=== PATIENT | female | born 1960 | race Caucasian/White ===

== ENCOUNTER 2016-08-21 07:39 | Emergency (ER) | payer OTHER ==
[2016-08-21 08:00] VITALS: BP 104/63; PULSE 96; TEMP 98.4; BMI 27.3
[2016-08-21] MEDS ORDERED: ALBUTEROL SO4 2.5/IPRATROPIUM 0.5 INH SOL 3 ML VIAL.NEB. NEB ONE ×2 (09:14→09:18)
--- NOTE | 2016-08-21 09:29 | PDOC ---
History of Present Illness - General Chief Complaint: Cold Symptoms Stated Complaint: COUGH,FEVER Time Seen by Provider: 08/21/16 07:59 History Source: Patient Exam Limitations: No Limitations - History of Present Illness Initial Comments: 08/21/16 09:24 Patient is a 55-year-old female, no significant medical history currently on no medication presents for evaluation of sinus pressure pain, headache, productive cough. Has had symptoms for 1 week, progressively worsening. Febrile last night tactile only. Denies any nausea vomiting, no abdominal pain, no back pain or chest pain. Past Medical History: Denies. Allergies: No known allergies Medications: None Family History: Non-contributory Social History: Denies smoking, alcohol use, or IVDU Review of Systems GENERAL/CONSTITUTIONAL: No fever or chills. No weakness. No weight change. HEAD, EYES, EARS, NOSE AND THROAT: No change in vision. No ear pain or discharge. No sore throat. Sinus pressure and pain CARDIOVASCULAR: No chest pain or shortness of breath. RESPIRATORY: Productive cough, no wheezing, or hemoptysis. GASTROINTESTINAL: No nausea, vomiting, diarrhea or constipation. No rectal bleeding. GENITOURINARY: No dysuria, frequency, or change in urination. MUSCULOSKELETAL: No joint or muscle swelling or pain. No neck or back pain. SKIN : No rash or easy bruising. NEUROLOGIC: No headache, vertigo, loss of consciousness, or loss of sensation. PSYCHIATRIC: No depression or anxiety. ENDOCRINE: No increased thirst. No abnormal weight change. HEMATOLOGIC/LYMPHATIC: No anemia, easy bleeding, or history of blood clots. ALLERGIC/IMMUNOLOGIC: No hives or skin allergy. No latex allergy. Physical Exam: GENERAL: The patient is awake, alert, and fully oriented, in no acute distress. HEAD: Normal with no signs of trauma. EYES: Pupils equal, round and reactive to light, extraocular movements intact, sclera anicteric, conjunctiva clear. ENT: Ears normal, nares are inflamed, worse on left and right, oropharynx clear without exudates. Moist mucous membranes. No uvula deviation, frontal sinus pressure and pain NECK: Normal range of motion, supple without lymphadenopathy, JVD, or masses. LUNGS: Breath sounds equal, rhonchi cleared with cough, No wheezes, and no crackles. HEART: Regular rate and rhythm, normal S1 and S2 without murmur, rub or gallop. ABDOMEN: Soft, nontender, normoactive bowel sounds. No guarding, no rebound. No masses. No bruising or abrasions RECTAL : Guaiac negative, normal rectal tone. MUSCULOSKELETAL: Normal range of motion, no edema. No clubbing or cyanosis. No cords, erythema, or tenderness. No CVA Tenderness with fist palpation. NEUROLOGICAL: Cranial nerves II through XII grossly intact. Normal speech, normal gait. SKIN: Warm, Dry, normal turgor, no rashes or lesions noted. Past History - Past Medical History Allergies/Adverse Reactions: Allergies Allergy/AdvReac Type Severity Reaction Status Date / Time Penicillins Allergy Intermediate Verified 08/21/16 07:54 Home Medications: Ambulatory Orders Clarithromycin [Biaxin] 500 mg PO BID #20 tablet 08/21/16 Mometasone Furoate 17 gm NS BID #1 spray.pump 08/21/16 Thyroid Disease: No Other medical history: none - Surgical History Abdominal Surgery: Yes (TUMMY TUCK) - Immunization History Immunization Up to Date: Yes - Psycho/Social/Smoking Cessation Hx Anxiety: No Suicidal Ideation: No Smoking Status: No Smoking History: Never smoked Have you smoked in the past 12 months: No Number of Cigarettes Smoked Daily: 0 Information on smoking cessation initiated: No Hx Alcohol Use: No Drug/Substance Use Hx: No Substance Use Type: None *Physical Exam - Vital Signs Last Vital Signs Temp Pulse Resp BP Pulse Ox 98.4 F 96 H 18 104/63 100 08/21/16 07:55 08/21/16 07:55 08/21/16 07:55 08/21/16 07:55 08/21/16 07:55 ED Treatment Course - Medications Given in the ED: ED Medications Discontinued Medications Generic Name Dose Route Start Last Admin Trade Name Freq PRN Reason Stop Dose Admin Albuterol/Ipratropium 1 amp 08/21/16 09:14 08/21/16 09:20 Duoneb - NEB 08/21/16 09:15 1 amp ONCE ONE Administration Medical Decision Making - Medical Decision Making 08/21/16 09:25 A/P: Patient with clinical signs of bronchitis, sinusitis will DC patient on clarithromycin patient has had reaction to penicillin in the past. Also was given antibiotic last visit to emergency Department states she took azithromycin but it did not work. Also remembers having a reaction to medication unsure if it was the azithromycin although reviewing the chart old charts states reaction to Tamiflu. Combivent given prior to discharge, patient already on Flonase states doesn't work will start on Nasonex. I discussed the physical exam findings, ancillary test results and final diagnoses with the patient. I answered all of the patient's questions. The patient was satisfied with the care received and felt comfortable with the discharge plan and treatment plan. The patient will call to arrange follow-up and will return to the Emergency Department with any new, persistent or worsening symptoms. *DC/Admit/Observation/Transfer Diagnosis at time of Disposition: Bronchitis Sinusitis Qualifiers: Sinusitis location: frontal Chronicity: acute Recurrence: recurrent Qualified Code(s): J01.11 - Acute recurrent frontal sinusitis - Discharge Dispostion Disposition: HOME Condition at time of disposition: Good Admit: No - Prescriptions Prescriptions: Clarithromycin [Biaxin] 500 mg PO BID #20 tablet Mometasone Furoate 17 gm NS BID #1 spray.pump - Referrals Referrals: Lauren Ramirez MD [Primary Care Provider] - - Patient Instructions Printed Discharge Instructions: DI for Acute Bronchitis Additional Instructions: Keep head of bed elevated 45 when sleeping Cool air humidifier at night while sleeping Inhale steam from warm shower Motrin for pain Followup in the primary care doctor's office in 2 days for evaluation. If any respiratory distress, increased cough, inability to drink, increased wheezing please return immediately to emergency department.
== END 2016-08-21 09:48 | disposition home or self-care (01) ==
LOC: JERFT 07:39 → JER 07:39 → JERFT 09:48
PROC: 3E0F7GC Introduction of Other Therapeutic Substance into Respiratory Tract, Via Natural or Artificial Opening (ICD-10-PCS; principal; 2016-08-21)
DX: J01.11 Acute recurrent frontal sinusitis (principal)
CPT/HCPCS: 99281-25

== ENCOUNTER 2017-06-13 09:23 | Emergency (ER) | payer OTHER ==
--- NOTE | 2017-06-13 09:31 | PDOC ---
History of Present Illness - General Stated Complaint: CHEST PAIN Time Seen by Provider: 06/13/17 09:31 - History of Present Illness Initial Comments: 56 year old female with remote history of anxiety and depression (not currently medicated) presenting with chest pain that has gradually worsened since yesterday evening after an extreme bout of laughing. States That she had a little bit of right sided chest pain during the laughing bout that slightly resolved afte she went to bed. When she woke up she was also fine. The pain came on again while she was working and co-presented with lightheadedness. She drank some water with improvement of her symptoms but they were still lingering so she came to the ED. Of note, she has had some URI like symptoms in the setting of suspected sinusitis (currently on ) 06/13/17 12:46 Past History - Past Medical History Allergies/Adverse Reactions: Allergies Allergy/AdvReac Type Severity Reaction Status Date / Time Penicillins Allergy Intermediate Verified 06/13/17 09:31 Home Medications: Ambulatory Orders Doxycycline Hyclate 100 mg PO BID #20 tablet 06/08/17 Prednisone 10 mg PO DAILY 06/08/17 levoFLOXacin 750 mg PO DAILY 06/08/17 Albuterol Sulfate Inhaler - [Ventolin HFA Inhaler -] 1 - 2 inh PO QID #1 inhaler 06/13/17 COPD: No Thyroid Disease: No - Surgical History Abdominal Surgery: Yes (REYNALDO JOHNSTON) - Immunization History Immunization Up to Date: Yes - Suicide/Smoking/Psychosocial Hx Smoking Status: No Smoking History: Never smoked Have you smoked in the past 12 months: No Number of Cigarettes Smoked Daily: 0 Hx Alcohol Use: No Drug/Substance Use Hx: No Substance Use Type: None Review of Systems - Review of Systems Constitutional: Yes: Chills, Fever HEENTM: No: Blurred Vision, Recent change in vision Respiratory: Yes: Cough. No: Shortness of Breath, Wheezing Cardiac (ROS): Yes: Chest Pain, Chest Tightness. No: Irregular Heart Rate ABD/GI: Yes: Nausea. No: Diarrhea, Vomiting : No: Burning, Dysuria, Discharge Musculoskeletal: No: Back Pain Integumentary: No: Bruising, Erythema Neurological: No: Headache, Paresthesia Psychiatric: Yes: Anxiety, Depression *Physical Exam - Physical Exam General Appearance: Yes: Nourished, Appropriately Dressed. No: Apparent Distress HEENT: positive: EOMI, ALEJANDRO, Normal ENT Inspection, Normal Voice Neck: positive: Trachea midline, Normal Thyroid, Supple. negative: Tender, Rigid Respiratory/Chest: positive: Lungs Clear, Normal Breath Sounds. negative: Chest Tender, Respiratory Distress, Accessory Muscle Use Cardiovascular: positive: Regular Rhythm, Regular Rate Gastrointestinal/Abdominal: positive: Normal Bowel Sounds, Flat, Soft. negative : Tender Musculoskeletal: positive: Normal Inspection. negative: Decreased Range of Motion Extremity: positive: Normal Capillary Refill, Normal Inspection, Normal Range of Motion. 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 Pain improved in the ED with toradol, tylenol, and nebs. Labs, UA, EKG, and CXR were WNL so patient will be discharged with albuterol inhaler and instructions to continue abx. 06/13/17 14:06 *DC/Admit/Observation/Transfer Diagnosis at time of Disposition: Chest pain Qualifiers: Chest pain type: unspecified Qualified Code(s): R07.9 - Chest pain, unspecified - Discharge Dispostion Disposition: HOME Condition at time of disposition: Improved Admit: No - Prescriptions Prescriptions: Albuterol Sulfate Inhaler - [Ventolin HFA Inhaler -] 1 - 2 inh PO QID #1 inhaler - Referrals Referrals: Lauren Ramirez MD [Primary Care Provider] - - Patient Instructions Printed Discharge Instructions: DI for Atypical Chest Pain, DI for Chest Pain Additional Instructions: Your chest pain is likely related to a muscle strain. Please use Tylenol as needed for the pain. Please follow up with Dr. Aguilar as needed. Please use the inhaler up to 4 times per day as needed for the shortness of breath. Please return to the ED for any new or worsening symptoms. - Post Discharge Activity Forms/Work/School Notes: Back to Work
[2017-06-13 09:36] VITALS: BMI 25.6
[2017-06-13] MEDS ORDERED: ACETAMINOPHEN 1000 MG/100 ML VIAL (NON FORMULARY) IVPB ONE (09:58)
[2017-06-13] MEDS ORDERED: SODIUM CHLORIDE 0.9% 500 ML INFUS.BAG IV ONE (09:59)
[2017-06-13] MEDS ORDERED: ACETAMINOPHEN INJECTION 100 ML IVPB ONE (10:01)
[2017-06-13 10:59] LABS: HEMATOCRIT 39.5 % (32.4-45.2); HEMOGLOBIN 12.9 GM/dL (10.7-15.3); MCH 25.3 pg (25.7-33.7); MCHC 32.8 g/dl (32.0-36.0); MEAN CELL VOLUME 77.1 fl (80-96); MEAN PLT VOLUME 9.9 fl (7.5-11.1); PLATELET COUNT 166 K/MM3 (134-434); RBC 5.12 M/mm3 (3.60-5.2); RDW 14.9 % (11.6-15.6); WHITE BLOOD COUNT 6.1 K/mm3 (4.0-10.0)
[2017-06-13 11:24] LABS: ALBUMIN 3.5 g/dl (3.4-5.0); ANION GAP 11 (8-16); BLOOD UREA NITROGEN 22 mg/dL (7-18); CALCIUM 9.5 mg/dL (8.5-10.1); CHLORIDE 106 mmol/L (98-107); CO2 27 mmol/L (21-32); CREATININE 0.7 mg/dL (0.55-1.02); GLUCOSE,RANDOM 80 mg/dL (74-106); POTASSIUM 4.1 mmol/L (3.5-5.1); SGOT/AST 35 U/L (15-37); SODIUM 144 mmol/L (136-145)
[2017-06-13 11:28] LABS: ALK PHOS 118 U/L (45-117); BILIRUBIN,TOTAL 0.4 mg/dL (0.2-1.0); SGPT/ALT 92 U/L (12-78); TOT PROT 7.5 g/dl (6.4-8.2)
--- NOTE | 2017-06-13 11:54 | EKG ---
Test Reason : Blood Pressure : / mmHG Vent. Rate : 073 BPM Atrial Rate : 073 BPM P-R Int : 154 ms QRS Dur : 094 ms QT Int : 416 ms P-R-T Axes : 042 -08 025 degrees QTc Int : 458 ms NORMAL SINUS RHYTHM WITH SINUS ARRHYTHMIA NORMAL ECG WHEN COMPARED WITH ECG OF 08-JUN-2017 18:08, NO SIGNIFICANT CHANGE WAS FOUND Confirmed by SERENITY GOLDBERG MD ([id number]) on 06/13/2017 11:54:04 AM Referred By: Confirmed By:SERENITY GOLDBERG MD
[2017-06-13] MEDS ORDERED: ALBUTEROL SO4 2.5/IPRATROPIUM 0.5 INH SOL 3 ML VIAL.NEB. NEB ONE ×2 (12:08→12:17)
[2017-06-13 12:41] LABS: URINE APPEARANCE CLEAR; URINE BILIRUBIN NEGATIVE (NEGATIVE); URINE BLOOD NEGATIVE (NEGATIVE); URINE COLOR COLORLESS; URINE GLUCOSE (UA) NEGATIVE (NEGATIVE); URINE KETONE NEGATIVE (NEGATIVE); URINE LEUK ESTERASE NEGATIVE (NEGATIVE); URINE NITRITE NEGATIVE (NEGATIVE); URINE PROTEIN NEGATIVE (NEGATIVE); URINE UROBILINOGEN NEGATIVE mg/dL (0.2-1.0)
[2017-06-13] MEDS ORDERED: KETOROLAC TROMETHAMINE 15 MG/ML VIAL IVPUSH ONE (12:41)
[2017-06-13] MEDS ORDERED: KETOROLAC TROMETHAMINE 15 MG/ML VIAL ONE (12:48)
[2017-06-13] MEDS ORDERED: KETOROLAC TROMETHAMINE 30 MG/1 ML VIAL ONE (12:55)
[2017-06-13] MEDS ORDERED: KETOROLAC TROMETHAMINE 30 MG/1 ML VIAL IM ONE (12:55)
[2017-06-13 15:16] VITALS: BP 123/77; PULSE 64; TEMP 98.2
--- NOTE | 2017-06-13 16:57 | PDOC ---
Attending Attestation - HPI HPI: 06/13/17 17:00 The patient is a 56 year old female with hx sinusitis presents to the ED complaining of chest pain since last evening. The patient describes her chest pain as right sided, squeezing, exertional, pleuritic, ranked 4-8/10 depending on positional changes. Reports pain began after laughing last night. Today, she was at work when her pain became worse when she twisted her body. Reports pain was worse when she pushes on it, but reports that she does not currently have pain. She reports to 1 week of feeling generally weak, and was diagnosed with sinusitis and treated with azithromycin, doxycycline, and steroids. She denies current headache. No shortness of breath. No fever or chills. No nausea, vomiting, or diaphoresis. No recent travel or long periods of immobilization. Denies focal weakness or numbness. - Physicial Exam PE: 06/13/17 17:00 GENERAL: Awake, alert, and fully oriented, in no acute distress HEAD: No signs of trauma EYES: PERRLA, EOMI, sclera anicteric, conjunctiva clear ENT: Auricles normal inspection, hearing grossly normal, nares patent, oropharynx clear without exudates. Moist mucosa NECK: Normal ROM, supple, no lymphadenopathy, JVD, or masses LUNGS: Breath sounds equal, clear to auscultation bilaterally. No wheezes, and no crackles HEART: Regular rate and rhythm, normal S1 and S2, no murmurs, rubs or gallops ABDOMEN: Soft, nontender, normoactive bowel sounds. No guarding, no rebound. No masses EXTREMITIES: Normal range of motion, no edema. No clubbing or cyanosis. No cords, erythema, or tenderness BACK: No midline spinal tenderness in cervical/thoracic/lumbar region NEUROLOGICAL: Normal speech, cranial nerves intact, negative pronator drift, 5/ 5 strength in all 4 extremities, normal sensation to light touch in all 4 extremities, normal cerebellar exam, normal gait, normal reflexes and tone SKIN: Warm, Dry, normal turgor, no rashes or lesions noted. Documentation prepared by Eun Link, acting as medical examiner for Roxanna Duffy MD. <Eun Link - Last Filed: 06/13/17 17:00> - Resident Resident Name: Bertrand Esqueda - ED Attending Attestation I have performed the following: I have examined & evaluated the patient, The case was reviewed & discussed with the resident, I agree w/resident's findings & plan, Exceptions are as noted - Medical Decision Making 06/13/17 17:32 56-year-old female presents emergency Department with resolved reproducible chest pain, non-productive cough and generalized weakness. Cough improved with pt's daughter's albuterol. Bloodwork including troponin within normal limits. Urinalysis negative for infection. Chest x-ray with no acute pathology. Likely musculoskeletal pain as pain is reproducible, worse with twisting, coughing and EKG is nonischemic. Unlikely ACS as patient has no risk factors and pain is reproducible. Unlikely pulmonary embolism as patient has not shortness of breath no PE risk factors (no recent immobility, no hormones, no history of DVT) , and vitals are within normal limits. Patient was chest pain-free during entire 5 hour ED stay. Given cough and recent URI, improvement with albuterol, clear lungs and normal CXR, likely bronchitis. Pt is s/p tamiithilir, and currently on doxy for sinusitis, also on steroids which I encouraged her to complete. WIll prescribe an albuterol pump for symptomatic relief. Advised pt to f/u with PMD within 2-3 days. Pt requests DC home. I discussed the physical exam findings, ancillary test results and final diagnoses with the patient. I answered all of the patient's questions. The patient was satisfied with the care received and felt comfortable with the discharge plan and treatment plan. The patient will call their primary care physician within 24 hours to arrange follow-up and will return to the Emergency Department with any new, persistent or worsening symptoms. <Roxanna Duffy - Last Filed: 06/13/17 17:45> Heart Score/ECG Review - [place] Comment: 06/13/17 17:30 Twelve-lead EKG was performed and reviewed by me. Normal sinus rhythm, rate 73. Normal axis, no ST elevations. <Roxanna Duffy - Last Filed: 06/13/17 17:45>
== END 2017-06-13 14:45 | disposition home or self-care (01) ==
LOC: JER 09:23
PROC: 3E0F7GC Introduction of Other Therapeutic Substance into Respiratory Tract, Via Natural or Artificial Opening (ICD-10-PCS; principal; 2017-06-13)
PROC: 3E033NZ Introduction of Analgesics, Hypnotics, Sedatives into Peripheral Vein, Percutaneous Approach (ICD-10-PCS; 2017-06-13)
PROC: 3E0F7GC Introduction of Other Therapeutic Substance into Respiratory Tract, Via Natural or Artificial Opening (ICD-10-PCS; 2017-06-13)
PROC: 3E0233Z Introduction of Anti-inflammatory into Muscle, Percutaneous Approach (ICD-10-PCS; 2017-06-13)
PROC: 3E0337Z Introduction of Electrolytic and Water Balance Substance into Peripheral Vein, Percutaneous Approach (ICD-10-PCS; 2017-06-13)
DX: R07.9 Chest pain, unspecified (principal)
CPT/HCPCS: 36415; 71046-TC-FY; 80053; 81003; 82550; 84484; 85027; 93005; 93010; 99284-25; J0131

== ENCOUNTER 2019-03-07 14:13 | Emergency (ER) | payer OTHER ==
[2019-03-07 14:37] VITALS: BMI 28.3
[2019-03-07] MEDS ORDERED: METHOCARBAMOL 500 MG TABLET PO ONE (14:47)
[2019-03-07] MEDS ORDERED: KETOROLAC TROMETHAMINE 30 MG/1 ML VIAL IM ONE (14:47)
[2019-03-07] MEDS ORDERED: METHOCARBAMOL 500 MG TABLET ONE (14:53)
[2019-03-07] MEDS ORDERED: KETOROLAC TROMETHAMINE 30 MG/1 ML VIAL ONE (14:53)
--- NOTE | 2019-03-07 15:02 | PDOC ---
History of Present Illness - General History Source: Patient Exam Limitations: Clinical Condition - History of Present Illness Initial Comments: 03/07/19 15:07 Patient with PMhx of hypotension on midodrine and chronic back pains present with complains of worsening lower back pains and spasm after carrying heavy boxes during moving. Patient report she use to take motrin for her back pains which helps but she ran out of her motrin. Denies numbness ot tingling sensation. Denies urinary symptoms of dysuria or urgency or hematuria. Patient last took aleve yesterday for pain . Patient report she did not take her midodrine hypotension medication today. Denies any other symptoms Occurred: reports: other (3 days) Severity: reports: moderate Pain Location: reports: back Method of Injury: Yes: other (heavy lifting) <Tavo House - Last Filed: 03/07/19 15:58> <Moses Herrera - Last Filed: 03/07/19 17:42> - General Chief Complaint: Back Pain Stated Complaint: LOWER BACK PAIN Time Seen by Provider: 03/07/19 14:42 Past History - Past Medical History COPD: No Thyroid Disease: No - Surgical History Abdominal Surgery: Yes (TUMMY TUCK) - Immunization History Immunization Up to Date: Yes - Psycho Social/Smoking Cessation Hx Smoking Status: No Smoking History: Never smoked Have you smoked in the past 12 months: No Number of Cigarettes Smoked Daily: 0 Hx Alcohol Use: No Drug/Substance Use Hx: No Substance Use Type: None <Tavo House - Last Filed: 03/07/19 15:58> <Moses Herrera - Last Filed: 03/07/19 17:42> - Past Medical History Allergies/Adverse Reactions: Allergies Allergy/AdvReac Type Severity Reaction Status Date / Time Penicillins Allergy Intermediate Verified 06/13/17 09:31 Home Medications: Ambulatory Orders Doxycycline Hyclate 100 mg PO BID #20 tablet 06/08/17 Prednisone 10 mg PO DAILY 06/08/17 levoFLOXacin 750 mg PO DAILY 06/08/17 Albuterol Sulfate Inhaler - [Ventolin HFA Inhaler -] 1 - 2 inh PO QID #1 inhaler 06/13/17 Ibuprofen 800 mg PO Q8H PRN #20 tablet 03/07/19 Methocarbamol [Robaxin -] 500 mg PO TID 4 Days #21 tablet 03/07/19 Methylprednisolone [Medrol Dose [place]] 4 mg PO ASDIR #21 tablet 03/07/19 Trauma Specific PMHX - Complaint Specific PMHX Back Injury: No Neck Injury: No <Tavo House - Last Filed: 03/07/19 15:58> Review of Systems - Review of Systems Able to Perform ROS?: Yes Is the patient limited Cambodian proficient: No Constitutional: No: Malaise, Weakness HEENTM: No: Symptoms Reported, See HPI, Eye Pain, Blurred Vision, Tearing, Recent change in vision, Double Vision, Cataracts, Ear Pain, Ocular Prothesis, Ear Discharge, Nose Pain, Nose Congestion, Tinnitus, Nose Bleeding, Hearing Loss , Throat Pain, Throat Swelling, Mouth Pain, Dental Problems, Difficulty Swallowing, Mouth Swelling, Other Respiratory: No: Symptoms reported, See HPI, Cough, Orthopnea, Shortness of Breath, SOB with Exertion, SOB at Rest, Stridor, Wheezing, Productive cough, Hemoptysis, Other Cardiac (ROS): No: Symptoms Reported, See HPI, Chest Pain, Edema, Irregular Heart Rate, Lightheadedness, Palpitations, Syncope, Chest Tightness, Other ABD/GI: No: Symptoms Reported, See HPI, Nausea, Vomiting, Abdominal cramping : No: Symptoms Reported, Burning, Dysuria, Frequency, Hematuria, Urgency Musculoskeletal: Yes: Symptoms Reported, See HPI, Back Pain (lower back pain), Muscle Pain (b/l lower back pain) Integumentary: No: Symptoms Reported Neurological: No: Symptoms reported, Numbness, Paresthesia, Tingling, Weakness All Other Systems: Reviewed and Negative <Tavo House - Last Filed: 03/07/19 15:58> *Physical Exam - Vital Signs Last Vital Signs Temp Pulse Resp BP Pulse Ox 98.2 F 80 17 99/58 L 97 03/07/19 14:34 03/07/19 14:34 03/07/19 14:34 03/07/19 14:34 03/07/19 14:34 - Physical Exam 03/07/19 15:01 GENERAL: Well developed, well nourished. Awake and alert in moderate acute distress. CARDIOVASCULAR: Regular rate and rhythm. No murmurs, rubs, or gallops. PULMONARY: No evidence of respiratory distress. Lungs clear to auscultation bilaterally. No wheezing, rales or rhonchi. ABDOMINAL: Soft. Non-tender. Non-distended. No rebound or guarding. No organomegaly. Normoactive bowel sounds MUSCULOSKELETAL : moderate tenderness over posterior paravertebral muscle of lumbosacal spine of L4-S2 on bilateral sides. No bony deformities. Radiculopathy SKIN: Warm and dry. Normal capillary refill. No rashes. No jaundice. NEUROLOGICAL: Alert, awake, appropriate. No motor deficits in the lower extremities. Gait is normal without ataxia. PSYCHIATRIC: Cooperative. Good eye contact. Appropriate mood and affect. General Appearance: Yes: Nourished, Appropriately Dressed, Apparent Distress, Moderate Distress <Tavo House - Last Filed: 03/07/19 15:58> - Vital Signs Last Vital Signs Temp Pulse Resp BP Pulse Ox 98.0 F 87 19 100/65 99 03/07/19 16:00 03/07/19 16:00 03/07/19 16:00 03/07/19 16:00 03/07/19 16:00 <Moses Herrera - Last Filed: 03/07/19 17:42> ED Treatment Course - RADIOLOGY Radiology Studies Ordered: Category Date Time Status SPINE-LUMBAR SACRAL [RAD] Stat Radiology 03/07/19 14:48 Ordered <Tavo House - Last Filed: 03/07/19 15:58> - Medications Given in the ED: ED Medications Discontinued Medications Generic Name Dose Route Start Last Admin Trade Name Freq PRN Reason Stop Dose Admin Ketorolac Tromethamine 30 mg 03/07/19 14:47 03/07/19 15:08 Toradol Injection - IM 03/07/19 14:48 30 mg ONCE ONE Administration Methocarbamol 500 mg 03/07/19 14:47 03/07/19 15:08 Robaxin - PO 03/07/19 14:48 500 mg ONCE ONE Administration <Moses Herrera - Last Filed: 03/07/19 17:42> Medical Decision Making - Medical Decision Making 03/07/19 15:11 Patient with PMhx of hypotension on midodrine and chronic back pains present with complains of worsening lower back pains and spasm after carrying heavy boxes during moving. Patient report she use to take motrin for her back pains which helps but she ran out of her motrin. Denies numbness ot tingling sensation. Denies urinary symptoms of dysuria or urgency or hematuria. Patient last took aleve yesterday for pain . Patient report she did not take her midodrine hypotension medication today. Denies any other symptoms Exam significant for moderate tenderness to b/l paravertebral muscle of lumber spine. no radiculopathy. Toradol 30mg IM and Robaxin 500mg PO ordered for pain and spasm 03/07/19 15:58 Patient report improvement with Toradol and robaxin. x-rays of lumbosacral shows straightening of spine. Patient stable for discharge on medrol for anti- inflammatoy effect and robaxin with neurospine f/u <Tavo House - Last Filed: 03/07/19 15:58> - Medical Decision Making I reviewed the case of the mid-level practitioner and was available for consultation while in the emergency department <Moses Herrera - Last Filed: 03/07/19 17:42> Discharge - Discharge Information Problems reviewed: Yes - Admission No <Tavo House - Last Filed: 03/07/19 15:58> <Moses Herrera - Last Filed: 03/07/19 17:42> - Discharge Information Clinical Impression/Diagnosis: Lumbago without sciatica Qualifiers: Chronicity: chronic Back pain laterality: bilateral Qualified Code(s): M54.5 - Low back pain Condition: Stable Disposition: HOME - Additional Discharge Information Prescriptions: Ibuprofen 800 mg PO Q8H PRN #20 tablet PRN Reason: Back Pain Methocarbamol [Robaxin -] 500 mg PO TID 4 Days #21 tablet Methylprednisolone [Medrol Dose [place]] 4 mg PO ASDIR #21 tablet - Follow up/Referral Referrals: Lauri Reaves MD, FAANS [Staff Physician] - - Patient Discharge Instructions Patient Printed Discharge Instructions: DI for Low Back Pain Additional Instructions: Take prescribed medications as prescribed for back pains. Apply hot compress to back 2-3 times a day as needed for back pain. Use back brace as discussed. Follow-up with referred orthopedics therapeutic sales specialist if symptoms persist for more than 4 days Print Language: BULGARIAN
[2019-03-07 16:01] VITALS: BP 100/65; PULSE 87; TEMP 98
== END 2019-03-07 16:01 | disposition home or self-care (01) ==
LOC: JER 14:13
PROC: 3E0233Z Introduction of Anti-inflammatory into Muscle, Percutaneous Approach (ICD-10-PCS; principal; 2019-03-07)
DX: M54.5 Low back pain (principal); Z88.0 Allergy status to penicillin; I95.9 Hypotension, unspecified; G89.29 Other chronic pain
CPT/HCPCS: 72100-TC-FY; 99281-25

== ENCOUNTER 2019-06-02 03:58 | Emergency (ER) | payer OTHER ==
[2019-06-02] MEDS ORDERED: ACETAMINOPHEN 325 MG TABLET (FP) PO ONE (04:30)
[2019-06-02] MEDS ORDERED: LACTATED RINGERS SOLUTION 1000 ML INFUS.BAG IV ONE ×2 (04:33→06:14)
[2019-06-02 04:34] VITALS: BMI 27.3
--- NOTE | 2019-06-02 04:34 | PDOC ---
History of Present Illness - General Chief Complaint: Cold Symptoms Stated Complaint: FEVER,HEADACHE,DIZZINESS Time Seen by Provider: 06/02/19 04:28 History Source: Patient, Family (Daughter at bedside), Pt declined Loan Secretary Exam Limitations: Language Barrier (Grenadian speaking - requested daughter provide translation) - History of Present Illness Initial Comments: HPI: 58 y/o female presenting to [facility] ER complaining of fever, headache, nonproduct pk cough, and myalgias since Sunday. Reports chest tightness with coughing. Also reports increased urinary frequency and urgency without dysuria or hematuria. Denies nausea, vomiting, abdominal pain, diarrhea, or rash. Last took Acetaminophen at approx. 11pm Sunday night. Sick Contacts: No Recent Travel: No, work colleague returned from [place] last week., daughter is a nursing tech Social Hx: - farm forestry and garden workers - Tobacco: Deneis - EtOH: Denies - Street Drugs: Denies Medical Hx: - HTN Surgical Hx: - Hysterectomy - Lipoplasty Review of Systems: In addition to that documented in the HPI above, the additional ROS was obtained: Constitutional- Endorses fevers and chills Head- Denies vision changes ENMT- Denies sore throat CV- Denies chest pain Resp- Per HPI GI- Denies vomiting or diarrhea - Per HPI MSK- Denies recent trauma Skin- Denies new rashes Neuro- Denies new numbness or tingling Endocrine- Denies polyuria Heme- Denies bleeding or bruising Physical Examination: Vital signs and nursing notes reviewed. Constitutional- Puny appearing adult female in no acute distress but mild obvious discomfort. Found *semi-fowlers on hospital bed. Head- Normocephalic. No obvious external signs of trauma. Eyes- Sclerae white. Conjunctiva moist and not injected. Neck- Supple, trachea is midline. Cardiovascular / Chest- Tachycardic rate with regular rhythm. No murmur, rubs, clicks, or gallops. Peripheral pulses- radial pulses full. No pretibial edema. Respiratory- Breathing unlabored, but mildly tachypneic. Equal chest rise and fall. Clear to auscultation bilaterally. No stridor, no wheezing, no rhonchi. Gastrointestinal- abdomen is soft, non-tender, non-distended. No hepatosplenomegaly. No pulsatile masses. No overlying skin lesions or obvious signs of trauma. Neuro- Alert and oriented x4. Moving all four extremities spontaneously. Skin- Warm, dry, and intact. - No R or L CVA tenderness. Psych- Affect- appropriate. Mood- normal. Speech was non-labored, non- pressured. MDM: 58 y/o female presenting with fever, headache, nonproductive cough, and myalgias x2 days. Febrile at triage; given acetaminophen. Vitals remarkable for tachycardia without hypotension. Normoxic on room air. Physical exam as described above. Suspect likely viral URI vs influenza vs PNA vs metabolic dera ngement. Low suspicion for COVID-19 without suspicious contacts or travel. ED Sepsis order set initiated. Ordered LR IVFB. Pt vomited twice. Ordered Zofran. Reviewed labs. Influenza A positive. No leukocytosis or significant electrolyte derangement. Not acidotic on VBG. Initial lactic acid not elevated. ED wet read of CXR unremarkable for acute cardiopulmonary findings. Ordered Toradol for persistent myalgias. Ordered third LR IVFB. UA unremarkable for pyuria, nitrites, or leukocyte esterase. Suspect ketones secondary to dehydration. Pt reassessed. Pts HR has trended to the 80s. Remains normotensive. Continues to complain of a headache. Ordered Reglan. Discussed physical exam findings, laboratory results, and xrays findings with pt and pts daughter. Answered all questions. Provided return precautions. pt expressed verbal understanding and agreement with plan to discharge home with outpatient follow up. Provided copies of todays results. Prescribed Zofran ODT. Encouraged hydration and isolation. Discussed infection control practices for home. Provided work note. Abhijit Blair M.D., PGY2 Emergency Medicine Resident Past History - Past Medical History Allergies/Adverse Reactions: Allergies Allergy/AdvReac Type Severity Reaction Status Date / Time Penicillins Allergy Intermediate Verified 06/02/19 04:28 Home Medications: Ambulatory Orders Doxycycline Hyclate 100 mg PO BID #20 tablet 06/08/17 Prednisone 10 mg PO DAILY 06/08/17 levoFLOXacin 750 mg PO DAILY 06/08/17 Albuterol Sulfate Inhaler - [Ventolin HFA Inhaler -] 1 - 2 inh PO QID #1 inhaler 06/13/17 Ibuprofen 800 mg PO Q8H PRN #20 tablet 03/07/19 Methocarbamol [Robaxin -] 500 mg PO TID 4 Days #21 tablet 03/07/19 Methylprednisolone [Medrol Dose [place]] 4 mg PO ASDIR #21 tablet 03/07/19 Ondansetron [Zofran Odt -] 4 mg SL TID PRN #10 od.tablet 06/02/19 COPD: No Thyroid Disease: No - Surgical History Abdominal Surgery: Yes (TUMMY TUCK) - Immunization History Immunization Up to Date: Yes - Psycho Social/Smoking Cessation Hx Smoking Status: No Smoking History: Never smoked Have you smoked in the past 12 months: No Number of Cigarettes Smoked Daily: 0 Hx Alcohol Use: No Drug/Substance Use Hx: No Substance Use Type: None *Physical Exam - Vital Signs Last Vital Signs Temp Pulse Resp BP Pulse Ox 101.1 F H 110 H 22 H 109/54 L 97 06/02/19 04:00 06/02/19 04:00 06/02/19 04:00 06/02/19 04:00 06/02/19 04:00 ED Treatment Course - LABORATORY CBC & Chemistry Diagram: 06/02/19 04:30 06/02/19 04:30 - RADIOLOGY Radiology Studies Ordered: Category Date Time Status CHEST PA & LAT [RAD] Stat Radiology 06/02/19 04:30 Ordered Discharge - Discharge Information Problems reviewed: Yes Clinical Impression/Diagnosis: Influenza A Condition: Fair Disposition: HOME - Admission No - Additional Discharge Information Prescriptions: Ondansetron [Zofran Odt -] 4 mg SL TID PRN #10 od.tablet PRN Reason: Nausea / Vomiting - Follow up/Referral - Patient Discharge Instructions Patient Printed Discharge Instructions: How to Wash Your Hands Properly, DI for Influenza -- Adult, Ondansetron Additional Instructions: Lo vieron hoy por fiebre, dolor de dante, tos y chace musculares. Gil prueba de gripe fue positiva. Es probable que contine sintindose mal saima los prximos ludwig. Puede rachelle Tylenol o Advil de venta colleen segn sea necesario para el dolor. Tmelo reynaldo se indica en el prospecto. No exceda la dosis recomendada. Maggie tipo de infeccin viral es altamente contagiosa! Necesitas quedarte en casa mientras ests febril. Mantngase alejado de nios, personas mayores, mujeres embarazadas u otras personas inmunocomprometidas. Usted y gil luis antonio deben asegurarse de lavarse las jean pierre con frecuencia! Contine tomando lquidos (agua, Gatorade, etc.) para mantenerse hidratado. Mezcle bebidas azucaradas con agua ya que el azcar puede deshidratarlo an ms. Puede probar y comer ramya pequea comida blanda (galletas saladas, etc.) despus de theron dejado de vomitar saima 12 horas. He enviado ramya receta de Zofran a gil farmacia. Tmelo reynaldo se indica en el prospecto. No consuma mas de la dosis recomendada. Se adjunta un folleto informativo sobre el medicamento. Regrese a la ebonie de emergencias si yonas vmitos empeoran y ya no puede retener los lquidos, si comienza a deshidratarse, se desmaya, se desorienta, comienza a vomitar dayami, tiene diarrea con dayami o siente que necesita ms. cuidados de emergencia. Nicola puede kaz a gil mdico de atencin primaria si yonas sntomas no mejoran. Vaya al departamento de emergencias ms cercano si gil condicin empeora o si siente que necesita ramya evaluacin de emergencia adicional. You were seen today for fever, headache, coughing, and muscle aches. Your flu test was positive. You will likely continue to feel bad for the next several days. You can take over the counter Tylenol or Advil as needed for pain. Take as directed on the package insert. Do not exceed the recommended dosage. This type of viral infection is highly contagious! You need to stay home while you are febrile. Stay away from children, elderly persons, females, or other immunocompromised individuals. You and your family need to be sure to frequently wash your hands! Please continue to drink fluids (water, Gatorade, etc) to stay hydrated. Mix sugary drinks with water as the sugar can further dehydrate you. You can try and eat a small bland meal (crackers, etc) after you have stopped vomiting for 12 hours. I have sent a prescription for Zofran to your pharmacy. Take as directed on the package insert. Do not take more than the recommended dose. An informational leaflet about the medication is attached. Return to the emergency room if your vomiting becomes much worse and you are no longer able to keep fluids down, if you begin to feel dehydrated, pass out, become disoriented, begin vomiting blood, have bloody diarrhea, or you feel like you need additional emergency care. You can also see your primary care doctor if your symptoms do not improve. Go to the nearest emergency department if your condition worsens or you feel like you need additional emergency evaluation. Print Language: JORDANIAN - Post Discharge Activity Work/Back to School Note: Back to Work
--- NOTE | 2019-06-02 04:41 | PDOC ---
Attending Attestation - Resident Resident Name: Abhijit Blair - ED Attending Attestation I have performed the following: I have examined & evaluated the patient, The case was reviewed & discussed with the resident, I agree w/resident's findings & plan - HPI HPI: 06/02/19 04:39 Pt comes with flu like sx for 2 days. She is achy all over. She has no ill contacts. She works in a factory in [place]. She never got her flu shot this year. She has no PMHx She has no PSHx - Physicial Exam PE: 06/02/19 04:40 Fever NO rashes HEENT normal heart tachy lungs CTAB abd soft NT ND +BS no flank pain no C/C/E - Medical Decision Making 06/02/19 04:41 IVF, ofirmev, labs sent 06/02/19 05:54 Flu A positive. 06/02/19 06:00 Pt will get some toradol. Pt has normal labs and she is feeling better with IVF. 06/02/19 06:06 SHe needs a UA 06/02/19 06:07 Pt will be hydrated and she will be sent home. Pt will be signed out to the day team. Official XR reading to r/o pneumonia superimposed on the flu. 06/02/19 06:08 HR is 78bpm
[2019-06-02] MEDS ORDERED: ACETAMINOPHEN 1000 MG/100 ML VIAL (NON FORMULARY) IVPB ONE (04:43)
[2019-06-02] MEDS ORDERED: ACETAMINOPHEN INJECTION 100 ML IVPB ONE (04:49)
[2019-06-02 05:09] LABS: BASO % 0.2 % (0-2.0); EOS % 0.1 % (0-4.5); HEMATOCRIT 35.3 % (32.4-45.2); HEMOGLOBIN 11.5 GM/dL (10.7-15.3); LYMPH % 8.6 % (8-40); MCH 25.2 pg (25.7-33.7); MCHC 32.5 g/dl (32.0-36.0); MEAN CELL VOLUME 77.4 fl (80-96); MEAN PLT VOLUME 10.2 fl (7.5-11.1); MONO % 8.1 % (3.8-10.2); PLATELET COUNT 147 K/MM3 (134-434); RBC 4.56 M/mm3 (3.60-5.2); RDW 14.8 % (11.6-15.6); WHITE BLOOD COUNT 5.4 K/mm3 (4.0-10.0)
[2019-06-02 05:10] LABS: VENOUS PH 7.44 (7.31-7.41)
[2019-06-02] MEDS ORDERED: ONDANSETRON 4 MG/2 ML VIAL IVPUSH ONE (05:11)
[2019-06-02 05:12] LABS: VENOUS PO2 < 49 mmHg (28-48)
[2019-06-02] MEDS ORDERED: ONDANSETRON 4 MG/2 ML VIAL ONE (05:14)
[2019-06-02 05:37] LABS: ALBUMIN 3.3 g/dl (3.4-5.0); BILIRUBIN,TOTAL 0.2 mg/dL (0.2-1); BLOOD UREA NITROGEN 11.3 mg/dL (7-18); CALCIUM 8.6 mg/dL (8.5-10.1); CREATININE 0.7 mg/dL (0.55-1.3); POTASSIUM 3.5 mmol/L (3.5-5.1); TOT PROT 6.8 g/dl (6.4-8.2)
[2019-06-02] MEDS ORDERED: KETOROLAC TROMETHAMINE 30 MG/1 ML VIAL IVPUSH ONE (05:54)
[2019-06-02] MEDS ORDERED: KETOROLAC TROMETHAMINE 30 MG/1 ML VIAL ONE (05:59)
[2019-06-02 06:08] VITALS: TEMP 98
[2019-06-02 06:26] LABS: PH,URINE 7.5 (5.0-8.0); URINE APPEARANCE CLEAR; URINE BILIRUBIN NEGATIVE (NEGATIVE); URINE COLOR YELLOW; URINE GLUCOSE (UA) NEGATIVE (NEGATIVE); URINE KETONE TRACE (NEGATIVE); URINE LEUK ESTERASE NEGATIVE (NEGATIVE); URINE NITRITE NEGATIVE (NEGATIVE); URINE PROTEIN NEGATIVE (NEGATIVE); URINE UROBILINOGEN 0.2 mg/dL (0.2-1.0)
[2019-06-02] MEDS ORDERED: METOCLOPRAMIDE HCL INJECTION 10 MG/2 ML VIAL ONE (06:47)
[2019-06-02] MEDS ORDERED: METOCLOPRAMIDE HCL INJECTION 10 MG/2 ML VIAL IVPUSH ONE (06:47)
[2019-06-02 07:56] VITALS: BP 100/54; PULSE 78
--- NOTE | 2019-06-02 09:26 | EKG ---
Test Reason : Blood Pressure : / mmHG Vent. Rate : 092 BPM Atrial Rate : 092 BPM P-R Int : 146 ms QRS Dur : 096 ms QT Int : 364 ms P-R-T Axes : 022 -04 014 degrees QTc Int : 450 ms NORMAL SINUS RHYTHM NORMAL ECG WHEN COMPARED WITH ECG OF 13-JUN-2017 09:32, NO SIGNIFICANT CHANGE WAS FOUND Confirmed by Lissett Hawkins ([id number]) on 06/02/2019 9:25:35 AM Referred By: Confirmed By:Lissett Hawkins
== END 2019-06-02 07:56 | disposition home or self-care (01) ==
LOC: JER 03:58
PROC: 3E033NZ Introduction of Analgesics, Hypnotics, Sedatives into Peripheral Vein, Percutaneous Approach (ICD-10-PCS; principal; 2019-06-02)
PROC: 3E033GC Introduction of Other Therapeutic Substance into Peripheral Vein, Percutaneous Approach (ICD-10-PCS; 2019-06-02)
DX: J09.X2 Influenza due to identified novel influenza A virus with other respiratory manifestations (principal); I10 Essential (primary) hypertension; Z90.710 Acquired absence of both cervix and uterus; Z98.890 Other specified postprocedural states; Z88.0 Allergy status to penicillin
CPT/HCPCS: 36415; 71046-TC-FY; 80053; 81003; 82803; 83605; 85025; 87086; 87804; 93005; 93010; 99285-25; J0131

== ENCOUNTER 2019-10-15 09:52 | Emergency (ER) | payer OTHER ==
[2019-10-15 10:14] VITALS: BP 99/70; PULSE 103; TEMP 100.6; BMI 28.3
[2019-10-15] MEDS ORDERED: SODIUM CHLORIDE 0.9% 500 ML INFUS.BAG IV ONE (10:40)
[2019-10-15] MEDS ORDERED: ACETAMINOPHEN 500 MG TABLET (FP) PO ONE (10:40)
--- NOTE | 2019-10-15 10:57 | PDOC ---
History of Present Illness - General Chief Complaint: Weakness Stated Complaint: COVID+ / PAIN Time Seen by Provider: 10/15/19 10:18 - History of Present Illness Initial Comments: Jessenia Khan is a 58 y/o female with reported PMH significant for hypotension, presenting today with fever and generalized body aches for the past 8 days. Reports that she tested positive for COVID last . Reports vomiting once a day for the past three days NBNB. Normal stool. No chest pain/shortness of breath. No leg swelling. No focal abdominal pain or back pain. Reports mild headache. No vertigo. No vision changes. No recent sick contacts that she is aware of. Past History - Medical History Allergies/Adverse Reactions: Allergies Allergy/AdvReac Type Severity Reaction Status Date / Time Penicillins Allergy Intermediate Verified 10/15/19 10:10 Home Medications: Ambulatory Orders Doxycycline Hyclate 100 mg PO BID #20 tablet 06/08/17 Albuterol Sulfate Inhaler - [Ventolin HFA Inhaler -] 1 - 2 inh PO QID #1 inhaler 06/13/17 Ibuprofen 800 mg PO Q8H PRN #20 tablet 03/07/19 Methocarbamol [Robaxin -] 500 mg PO TID 4 Days #21 tablet 03/07/19 Methylprednisolone [Medrol Dose [place]] 4 mg PO ASDIR #21 tablet 03/07/19 Ondansetron [Zofran Odt -] 4 mg SL TID PRN #10 od.tablet 06/02/19 Ondansetron [Zofran *Odt*] 4 mg SL DAILY 4 Days #4 od.tablet 10/15/19 COPD: No HTN: (Hypotension) Thyroid Disease: No - Surgical History Abdominal Surgery: Yes (TUMMY TUCK) - Immunization History Immunization Up to Date: Yes - Psycho-Social/Smoking History Smoking Status: No Smoking History: Never smoked Have you smoked in the past 12 months: No Number of Cigarettes Smoked Daily: 0 Information on smoking cessation initiated: No - Substance Abuse Hx (Audit-C & DAST Scrn) How often the patient has a drink containing alcohol: Never Score: In Men: 4 or > Positive; In Women: 3 or > Positive: 0 Screen Result (Pos requires Nsg. Audit-10AR): Negative In the last yr the pt used illegal drug/Rx for NonMed reason: No Score: Yes response is considered Positive: 0 Screen Result (Positive result requires Nsg. DAST-10): Negative Review of Systems - Review of Systems Comments:: GENERAL/CONSTITUTIONAL: Reports fever. No weakness._ HEAD, EYES, EARS, NOSE AND THROAT: No change in vision. No change in hearing. No sore throat._ CARDIOVASCULAR: No chest pain or shortness of breath_ RESPIRATORY: Denies cough, hemoptysis_ GASTROINTESTINAL: Reports nausea and vomiting. No diarrhea or constipation._ GENITOURINARY: No dysuria, frequency, or change in urination._ MUSCULOSKELETAL: Reports diffuse muscle pains in the upper and lower extremities and torso. No neck or back pain._ SKIN: No rash_ NEUROLOGIC: Reports mild headache. No loss of consciousness, or change in strength/sensation._ ENDOCRINE: No increased thirst. No abnormal weight change_ HEMATOLOGIC/LYMPHATIC: No anemia, easy bleeding, or history of blood clots._ ALLERGIC/IMMUNOLOGIC: No hives or skin allergy._ *Physical Exam - Vital Signs Last Vital Signs Temp Pulse Resp BP Pulse Ox 100.6 F H 103 H 20 99/70 98 10/15/19 10:07 10/15/19 10:07 10/15/19 10:07 10/15/19 10:07 10/15/19 10:07 - Physical Exam GENERAL: Awake, alert, and oriented to person/place/time, in no acute distress_ HEAD: No signs of trauma, normocephalic, atraumatic _ EYES: PERRLA, EOMI, sclera anicteric, conjunctiva clear_ ENT: Hearing grossly normal, nares patent, oropharynx clear without exudates. No uvular deviation. Moist mucosa_ NECK: Normal ROM, supple, no lymphadenopathy, JVD, or masses_ LUNGS: No distress, speaks in full sentences, clear to auscultation bilaterally _ HEART: Regular rate and rhythm, normal S1 and S2, no murmurs appreciated, peripheral pulses normal and equal bilaterally._ ABDOMEN: Soft, nontender, normoactive bowel sounds. No guarding, no rebound. No masses_ EXTREMITIES: Normal inspection, Normal range of motion, no edema. No clubbing or cyanosis_ NEUROLOGICAL: Cranial nerves II through XII grossly intact. Normal speech, normal gait, no focal sensorimotor deficits _ SKIN: Warm, Dry, normal turgor, no rashes or lesions noted_ Medical Decision Making - Medical Decision Making 10/15/19 10:57 58F hx of hypotension presenting today with fever and generalized myalgias and body aches for the past 8 days. Nausea/vomiting NBNB x3 for the past three days. Pt tested positive for COVID. Saturates well on room air while ambulating. Plan to d/c home with PCP f/u and strict quarantine and return precautions. All questions answered. Pt verbalized understanding and agreement with plan. Discharge - Discharge Information Problems reviewed: Yes Clinical Impression/Diagnosis: Well adult, Lab test positive for detection of COVID-19 virus Fever Qualifiers: Encounter type: initial encounter Condition: Stable Disposition: HOME - Admission No - Additional Discharge Information Prescriptions: Ondansetron [Zofran *Odt*] 4 mg SL DAILY 4 Days #4 od.tablet - Follow up/Referral Referrals: Lauren Ramirez MD [Primary Care Provider] - - Patient Discharge Instructions Patient Printed Discharge Instructions: [facility]-Coronavirus Instructions, [facility]- [facility] COVID-19 Isolation Protocol Additional Instructions: Please quarantine yourself away from family and friends for 14 days. Please keep yourself well hydrated and nourished. Please take Tylenol as needed for your muscle pain. If you experience any new, worsening, or concerning symptoms, including difficulty breathing, chest pain, or any other concerns, please return to the emergency room. Ponga en cuarentena lejos de gil luis antonio y amigos saima 14 ludwig. Por favor mantngase jessica hidratado y nutrido. [place] Tylenol segn sea necesario para gli dolor muscular. Si experimenta algn sntoma nuevo, que empeora o preocupa, reynaldo dificultad para respirar, dolor en el pecho o cualquier otra inquietud, regrese a la ebonie de emergencias. - Post Discharge Activity
[2019-10-15] MEDS ORDERED: ONDANSETRON *ODT* 4 MG TABLET SL ONE (11:10)
[2019-10-15] MEDS ORDERED: ONDANSETRON *ODT* 4 MG TABLET ONE (11:15)
--- NOTE | 2019-10-18 07:27 | PDOC ---
Documentation entered by Kezia Germain SCRIBE, acting as scribe for Mariel Castellanos MD. Mariel Castellanos MD: This documentation has been prepared by the scribe, Kezia Richardson SCRIBE, under my direction and personally reviewed by me in its entirety. I confirm that the documentation accurately reflects all work, treatment, procedures, and medical decision making performed by me. Attending Attestation - Resident Resident Name: Phil Hennessy - ED Attending Attestation I have performed the following: I have examined & evaluated the patient, The case was reviewed & discussed with the resident, I agree w/resident's findings & plan, Exceptions are as noted - HPI HPI: 10/15/19 11:10 The patient is a 58 year old female with a significant PMH of hypotension who presents to the ED for evaluation of 8 days of a subjective fever and body aches. Patient reports that she tested +COVID on 10/10/2019. She also endorses 1x episode of NBNB vomiting daily for the past 3 days. The patient denies chest pain, shortness of breath, headache and dizziness. Denies diarrhea and constipation. Denies dysuria, frequency, urgency and hematuria. Denies sick contacts. Allergies: NKA Social history: No reported hx of tobacco use, alcohol use or illicit drug use. - Physicial Exam PE: General: non-toxic appearing HEENT: MMM, NCAT Chest: CTAB, good air entry, no wheezes rales or rhonchi CVS: + s1 s2 Abdomen: soft, nt, no rebound, no guarding - Medical Decision Making 10/18/19 07:26 58 yo F here with COVID, no signs of respiratory distress, speaking in full sentences, lungs CTAB, good O2 sat, non-toxic appearing, no indication for admission at this time. Plan: -d/c with return precautions, recommend supportive care at home and PMD f/u This clinical encounter is taking place during a federal and state health care emergency attributable to the novel Pagan Virus pandemic. The [place] of the Department of Health and Human Services has declared, pursuant to the Public Health Service Act 319F-3 (42 U.S.C. 247d-6d), that a covered persons activities related to medical countermeasures against COVID-19 will be immune from liability under Federal and State law. Discharge - Discharge Information Problems reviewed: Yes Clinical Impression/Diagnosis: Well adult, Lab test positive for detection of COVID-19 virus Fever Qualifiers: Encounter type: initial encounter Condition: Stable Disposition: HOME - Additional Discharge Information Prescriptions: Ondansetron [Zofran *Odt*] 4 mg SL DAILY 4 Days #4 od.tablet - Follow up/Referral Referrals: Lauren Ramirez MD [Primary Care Provider] - - Patient Discharge Instructions Patient Printed Discharge Instructions: [facility]-Coronavirus Instructions, [facility]- [facility] COVID-19 Isolation Protocol Additional Instructions: Please quarantine yourself away from family and friends for 14 days. Please keep yourself well hydrated and nourished. Please take Tylenol as needed for your muscle pain. If you experience any new, worsening, or concerning symptoms, including difficulty breathing, chest pain, or any other concerns, please return to the emergency room. Ponga en cuarentena lejos de gil luis antonio y amigos saima 14 ludwig. Por favor mantngase jessica hidratado y nutrido. [place] Tylenol segn sea necesario para gil dolor muscular. Si experimenta algn sntoma nuevo, que empeora o preocupa, reynaldo dificultad para respirar, dolor en el pecho o cualquier otra inquietud, regrese a la ebonie de emergencias. - Post Discharge Activity
== END 2019-10-15 11:21 | disposition home or self-care (01) ==
LOC: JER 09:52
PROC: 3E033GC Introduction of Other Therapeutic Substance into Peripheral Vein, Percutaneous Approach (ICD-10-PCS; principal; 2019-10-15)
DX: U07.1 COVID-19 (principal); R50.9 Fever, unspecified
CPT/HCPCS: 99285-25; Q0162

== ENCOUNTER 2022-05-13 09:02 | Emergency (ER) | payer OTHER ==
[2022-05-13 09:14] VITALS: BMI 30.2
[2022-05-13] MEDS ORDERED: FAMOTIDINE 20 MG/50 ML IVPB 20 MG/50 ML MG IVPB ONE ×2 (10:25→10:29)
[2022-05-13] MEDS ORDERED: LACTATED RINGERS SOLUTION 1,000 ML/1,000 ML INFUS.BAG IV SCH (10:30)
[2022-05-13 10:59] LABS: BASO % 0.4 % (0-2.0); HEMATOCRIT 38.4 % (32.4-45.2); HEMOGLOBIN 12.6 GM/dL (10.7-15.3); LYMPH % 19.4 % (8-40); MCH 25.3 pg (25.7-33.7); MCHC 32.8 g/dl (32.0-36.0); MEAN CELL VOLUME 77.1 fl (80-96); MEAN PLT VOLUME 9.5 fl (7.5-11.1); MONO % 6.5 % (3.8-10.2); NEUT % 72.7 % (42.8-82.8); PLATELET COUNT 168 10^3/uL (134-434); RBC 4.98 M/mm3 (3.60-5.2); RDW 15.3 % (11.6-15.6); WHITE BLOOD COUNT 7.1 K/mm3 (4.0-10.0)
[2022-05-13 11:23] LABS: ALBUMIN 3.2 g/dl (3.4-5.0); CALCIUM 8.7 mg/dL (8.5-10.1)
[2022-05-13 11:24] LABS: BLOOD UREA NITROGEN 13.1 mg/dL (7-18)
[2022-05-13 11:27] LABS: CREATININE 0.7 mg/dL (0.55-1.3)
[2022-05-13 11:28] LABS: BILIRUBIN,TOTAL 0.4 mg/dL (0.2-1)
[2022-05-13] MEDS ORDERED: MAG HYDROX/AL HYDROX/SIMETH 30 ML UNIT-DOSE CUP PO PRN (13:05)
[2022-05-13] MEDS ORDERED: ACETAMINOPHEN 325 MG TABLET (FP) PO ONE (13:05)
[2022-05-13] MEDS ORDERED: ACETAMINOPHEN 325 MG TABLET (FP) ONE (13:09)
[2022-05-13] MEDS ORDERED: MAG HYDROX/AL HYDROX/SIMETH 30 ML UNIT-DOSE CUP ONE (13:09)
[2022-05-13 13:55] VITALS: BP 128/87; PULSE 89; RESP 16; TEMP 98.6
== END 2022-05-13 13:53 | disposition home or self-care (01) ==
LOC: JER 09:02
PROC: 3E033GC Introduction of Other Therapeutic Substance into Peripheral Vein, Percutaneous Approach (ICD-10-PCS; principal; 2022-05-13)
DX: R10.84 Generalized abdominal pain (principal); R19.7 Diarrhea, unspecified
CPT/HCPCS: 0241U-QW; 36415; 74177-TC; 80053; 83690; 85025; 99285-25; Q9967